=== PATIENT | female | born 1970 | race Caucasian/White ===

== ENCOUNTER 2019-07-16 20:49 | Emergency (ER) | payer SELFPAY ==
[~2019-07-16] VITALS: Ht 157.5 cm; Wt 61.4 kg
[2019-07-16 20:58] VITALS: BP 196/98
--- NOTE | 2019-07-16 21:43 | RAD ---
EXAM: PA and Lateral Views of the Chest DATE: 07/16/2019 9:11 PM INDICATION: rib pain, fall COMPARISON: No Prior FINDINGS: The heart is not enlarged. Mediastinal and hilar contours are normal. Minimal patchy opacities left lung base may represent atelectasis or consolidation. No pleural effusion or pneumothorax. Mild eventration left hemidiaphragm. IMPRESSION: Minimal patchy opacities left lung base may represent atelectasis or developing consolidation. Electronically signed by: Dameon Main MD (07/16/2019 9:40 PM) OMAR
--- NOTE | 2019-07-16 22:32 | PHYS DOC ---
Past Medical History Past Medical History: No Pertinent History Past Surgical History: Tubal ligation Smoking Status: Current Some Day Smoker Alcohol Use: None General Adult EDM: Chief Complaint: RIB PAIN HPI: HPI: Patient is a 48 year old female who presents with left rib pain. Patient has been trying to take deep breaths at home but is having significant pain. She states that 2 days ago she fell hitting her ribs. She is having significant pain anytime she tries to take a deep breath or cough. She denies any history of lung problems. She has not had any fever or productive cough. She also hit the left side of her hip but states that it has been fine since then. She has not noticed any significant pain with walking or movement in her hips. Review of Systems: Review of Systems: General: Denies fever, chills, sweats, fatigue Eyes: Denies drainage, blurred vision HENT: Denies rhinorrhea, sore throat Respiratory: Denies cough, shortness of breath, wheezing Cardiac: Denies edema, palpitations.reports chest pain GI: Denies abdominal pain, N/V MSK: Denies back pain, neck pain Skin: Denies rash, jaundice Neuro: Denies headache, dizziness Psychiatric: Denies SI/HI Heart Score: Risk Factors: Risk Factors: DM, Current or recent (<one month) smoker, HTN, HLP, family hist ory of CAD, obesity. Risk Scores: Score 0 - 3: 2.5% MACE over next 6 weeks - Discharge Home Score 4 - 6: 20.3% MACE over next 6 weeks - Admit for Clinical Observation Score 7 - 10: 72.7% MACE over next 6 weeks - Early Invasive Strategies Allergies: Allergies: Allergies Coded Allergies Type Severity Reaction Last Updated Verified No Known Drug Allergies 07/16/19 No Physical Exam: PE: Constitutional: Well developed, well nourished, Cooperative, NAD, non-toxic appearing HEENT: Normocephalic, atraumatic, oropharynx moist, EOMI, PERRL, no drainage from eyes, normal conjunctiva Neck: Supple, normal range of motion, no stridor, left chest wall tenderness Cardiovascular: RRR, 2+ radial pulses bilaterally, no edema Respiratory: CTA bilaterally, no respiratory distress, no wheezing/crackles Abdomen: Soft, nontender, nondistended, no masses Skin: Warm, dry, intact Extremities: No obvious deformities Neurologic: Alert and Oriented x3, motor and sensory function grossly normal, no focal deficits Psychologic: Normal affect, normal judgment, normal mood. No SI/HI Current Patient Data: Vital Signs: Vital Signs Date Time Temp Pulse Resp B/P (MAP) Pulse Ox O2 Delivery O2 Flow Rate FiO2 07/16/19 20:58 97.7 103 18 196/98 (130) 100 Room Air 97.7 EKG: EKG: [] Radiology/Procedures: Radiology/Procedures: Chest x-ray: Left possible rib fracture, started consolidation at left lower lobe [] Course & Med Decision Making: Course & Med Decision Making Pertinent Labs and Imaging studies reviewed. (See chart for details) Patient is a 48-year-old female who presents to the emergency room complaining of rib pain after a fall 2 days ago. Chest x-ray shows a possible rib fracture in the beginning of a consolidation at the left lower lobe. Patient is not febrile, does not have any respiratory distress, has not had any fever. She does not need to be admitted at this time for pneumonia. Patient was taught how to do incentive spirometry. She will be provided pain medication. I have discussed with her that she should start antibiotics. We have discussed that if she develops shortness of breath, productive cough, fever, worsening pain, her pain is not controlled with pain medication, she is unable to do her incentive spirometer at home she should return to the emergency room for admission. Patient's test results and vitals while in the ED were fully reviewed and discussed with the patient. Patient is stable and at this time does not need admission to the hospital. We have discussed strict return precautions and the importance of following up with their Primary Care Physician. Patient stated understanding and was given an opportunity to ask any questions. Dragon Disclaimer: Dragon Disclaimer: This electronic medical record was generated, in whole or in part, using a voice recognition dictation system. Departure Departure Referrals: NO PCP (PCP) Scripts Amoxicillin/Potassium Clav (AUGMENTIN 875-125 TABLET) 1 Each Tablet 1 TAB PO BID for 7 Days, #14 TAB 0 Refills Prov: JUSTIN MANNING MD 07/16/19 Meloxicam (MELOXICAM) 15 Mg Tablet 1 TAB PO DAILY for 15 Days, #15 TAB 0 Refills Prov: JUSTIN MANNING MD 07/16/19 Oxycodone/Apap 5-325 (PERCOCET 5-325 MG TABLET ) 1 Each Tablet 1 TAB PO PRN Q6HRS PRN for PAIN, #12 TAB 0 Refills Prov: JUSTIN MANNING MD 07/16/19 JUSTIN MANNING MD Jul 16, 2019 22:32
[2019-07-16] MEDS ORDERED: OXYC1TAB15 PO (22:38)
[2019-07-16] MEDS ORDERED: MELO15TA23 PO (22:38)
[2019-07-16] MEDS ORDERED: AMOX1TAB61 PO (22:38)
== END 2019-07-16 22:50 | disposition home or self-care (01) ==
LOC: ER 20:49
DX: R07.81 Pleurodynia (principal); M25.552 Pain in left hip; G89.11 Acute pain due to trauma; F17.200 Nicotine dependence, unspecified, uncomplicated; Z98.51 Tubal ligation status; W18.39XA Other fall on same level, initial encounter; Y93.89 Activity, other specified; Y92.89 Other specified places as the place of occurrence of the external cause; Y99.8 Other external cause status
CPT/HCPCS: 71046; 99283